=== PATIENT | female | born 1980 | race Caucasian/White ===

== ENCOUNTER → 2016-11-12 | Outpatient (CLI) | payer BC ==
[~2016-11-12] MED LIST: LABE100T PO; LABETOLOL
[2016-11-12 10:50] LABS: INDEX LIPEMIC 1 (1-3)
[2016-11-12 10:58] LABS: HEMATOCRIT 31.5 % (36.0-48.0); HEMOGLOBIN 10.4 g/dL (12.0-16.0)
[2016-11-12 14:12] LABS: INDEX LIPEMIC 1 (1-3)
== END | disposition home or self-care (01) ==
LOC: LAB 10:15
PROVIDERS: ATTEND Internal Medicine Geriatric Medicine
DX: Z34.00 Encounter for supervision of normal first pregnancy, unspecified trimester (principal)
CPT/HCPCS: 36415; 82947; 82950; 85014; 85018